=== PATIENT | female | born 1995 | race Caucasian/White ===

== ENCOUNTER 2018-07-18 12:00 | Emergency (ER) | payer SELFPAY ==
[~2018-07-18] VITALS: Ht 160 cm; Wt 59.7 kg
--- NOTE | 2018-07-18 12:49 | NUR ---
CALLED FOR ROOM. IN RESTROOM PER VISITOR.
[2018-07-18 12:52] LABS: BASOPHILS # (AUTO) 0.02 x10^3/uL (0-0.1); BASOPHILS % (AUTO) 0 % (0-1); EOSINOPHILS # (AUTO) 0.13 x10^3/uL (0-0.4); EOSINOPHILS % (AUTO) 1 % (1-7); LYMPHOCYTES # (AUTO) 2.04 x10^3/uL (1-3.4); LYMPHOCYTES % (AUTO) 13 % (22-44); MD NO; MEAN CORPUSCULAR HEMOGLOBIN 31.8 pg (27.0-34.8); MEAN CORPUSCULAR HGB CONC 33.6 g/dL (32.4-35.8); MEAN CORPUSCULAR VOLUME 94.7 fL (80-100); MEAN PLATELET VOLUME 7.7 fL (7.4-10.4); MONOCYTES # (AUTO) 0.71 x10^3/uL (0.2-0.8); MONOCYTES % (AUTO) 5 % (2-9); NEUTROPHILS # (AUTO) 12.78 x10^3/uL (1.8-6.8); NEUTROPHILS % (AUTO) 82 % (42-75); PLATELET COUNT 327 x10^3/uL (130-400); RED BLOOD COUNT 4.47 x10^6/uL (3.82-5.3); RED CELL DISTRIBUTION WIDTH 12.8 % (9.6-15.2)
[2018-07-18 13:03] LABS: ALANINE AMINOTRANSFERASE 20 U/L (12-78); ALBUMIN 3.1 g/dL (3.4-5.0); ANION GAP 9 mmol/L (5-15); CALCIUM 8.8 mg/dL (8.5-10.1); CHLORIDE 102 mmol/L (98-107); CREATININE 0.52 mg/dL (0.55-1.02)
[2018-07-18 13:09] LABS: ALKALINE PHOSPHATASE 74 U/L (45-117); BILIRUBIN,TOTAL 0.6 mg/dL (0.2-1.0); TOTAL PROTEIN 7.5 g/dL (6.4-8.2)
--- NOTE | 2018-07-18 13:09 | NUR ---
first contact with pt. pt c/o right sided rib cage pain x 1 week with cough. pt states that she is about 3 months . pt denies injury on right sided rib cage area/n/v/d at this time. pt aox4. resps even and unlabored. bp/spo2 monitors in place. call light within reach. awaiting edmd assessment at this time.
[2018-07-18 13:12] LABS: CULTURE INDICATED? YES; MICROSCOPIC INDICATED
--- NOTE | 2018-07-18 13:50 | NUR ---
pt in [place].
--- NOTE | 2018-07-18 14:14 | NUR ---
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
--- NOTE | 2018-07-18 14:15 | NUR ---
xray in room now
--- NOTE | 2018-07-18 14:19 | NUR ---
PT REQUESTING PAIN MED FOR RIGHT RIB CAGE PAIN, 03/24. EDMD AND PA NOTIFIED.
[2018-07-18] MEDS ORDERED: HYDROcodone/APAP 5/325 TABLET PO ONE (15:00)
[2018-07-18] MEDS ORDERED: CEFTRIAXONE PMX 1GM/50ML 50 ML IV ONE (15:00)
[2018-07-18] MEDS ORDERED: CEFTRIAXONE PMX 1GM/50ML 50 ML ONE (15:24)
[2018-07-18] MEDS ORDERED: HYDROcodone/APAP 5/325 TABLET ONE (15:24)
--- NOTE | 2018-07-18 15:25 | NUR ---
preceptor note: piv started by JACK Russell. PIV flushes easily but has no blood return. RN unable to draw second blood cx from line. lab called to notify pt must be drawn for second blood cx.
--- NOTE | 2018-07-18 15:32 | NUR ---
ABX STARTED AFTER BLOOD CULTURE DROWN X2. PT TOLERATED WELL.
--- NOTE | 2018-07-18 16:45 | NUR ---
STELLA Andre notified pt reports persistent right rib pain, order received for tylenol. awaiting dc paperwork from MD at this time.
[2018-07-18] MEDS ORDERED: ACETAMINOPHEN 500 MG TABLET ONE (16:48)
[2018-07-18] MEDS ORDERED: ACETAMINOPHEN 325 MG TABLET ONE (16:57)
[2018-07-18] MEDS ORDERED: ACETAMINOPHEN 325 MG TABLET PO ONE (17:00)
--- NOTE | 2018-07-18 17:01 | NUR ---
PT MEDICATED PER EMAR FOR PAIN. PT TOLERATED WELL.
[2018-07-18 17:05] VITALS: BP 114/70
--- NOTE | 2018-07-18 17:15 | NUR ---
PT GIVEN DC INSTRUCTIONS AND SCRIPTS. PT EDUCATED REGARDING DC MEDICATION WHICH IS OMNICEF. PT AOX4. RESPS EVEN AND UNLABORED. PT'S PAIN LEVEL REDUCED AT DC. PT AMB TO DC WITH STEADY GAIT. NO ACUTE DISTRESS AT DC.
== END 2018-07-18 17:07 | disposition home or self-care (01) ==
LOC: ED 14:35
DX: O23.42 Unspecified infection of urinary tract in pregnancy, second trimester (principal); O23.02 Infections of kidney in pregnancy, second trimester; Z3A.15 15 weeks gestation of pregnancy
CPT/HCPCS: 36415; 71045; 76770; 76801; 80053; 81001; 83690; 84702; 85025; 87040; 87086; 96365; 99284; J0696